=== PATIENT | male | born 1980 | race Caucasian/White ===

== ENCOUNTER 2023-01-14 21:10 | Emergency (ER) | payer BC, SELFPAY ==
[2023-01-14 21:10] VITALS: BP 179/94; PULSE 98; RESP 18; TEMP 36.4; O2SAT 99; BMI 45.1
--- NOTE | 2023-01-14 21:15 | EX.ED.DYSGE1 ---
HPI History of Present Illness Chief Complaint: Lower Extremity Injury PFSH PFS Home Medications levocetirizine 5 mg tablet (Xyzal) 5 mg PO DAILY allergies 01/14/23 [History Last Taken Unknown] Allergy/AdvReac Type Severity Reaction Status Date / Time amoxicillin Allergy Rash Verified 01/14/23 21:12 Surgical History (Updated 01/14/23 @ 21:27 by Stacy Lang) History of ankle surgery Social History Smoking Status: Never smoker EXAM Physical Exam Const Vital Signs: 01/14/23 21:10 Temperature 97.6 F L Temperature Source Temporal Pulse Rate 98 Respiratory Rate 18 Blood Pressure 179/94 H Blood Pressure Mean 122 Pulse Ox 99 Oxygen Delivery Method Room Air MDM MDM MDM Narrative Medical decision making narrative: HISTORY OF PRESENT ILLNESS: 42-year-old male here for left knee injury. He states he hurt his knee pop when try to get into his truck. This occurred approximately 5 PM, 4 hours prior to arrival. He states he was simply to get up in his pickup truck he heard a pop in his left knee. Since then he has had pain with ambulation. States pain is relatively well controlled at rest however when he tries to move he has severe pain in the left knee. The pain is nonradiating. He denies any numbness tingling or loss of sensation involved extremity. Patient denies active cancer, being bedridden for greater than 3 days, denies unilateral leg swelling, denies any varicose veins, denies any calf tenderness, denies any edema. Denies major surgery within 12 weeks, recent paralysis, previous DVT. REVIEW OF SYSTEMS: Pertinent positives: Knee pain Pertinent negatives: Numbness, tingling, loss of sensation PHYSICAL EXAM: Nursing triage notes reviewed, Vital signs reviewed Constitutional: please see mdm HENT: MMM Eyes: Pupils equal round and reactive to light, Extraocular muscles intact Neck: No stridor, no JVD, full neck ROM Lungs: Clear to auscultation, No wheezing or rales. No increased work of breathing, no conversational dyspnea, no accessory muscle use, no nasal flaring. No respiratory distress noted Heart: Regular rate and rhythm, No murmurs, No rubs and No gallops, 2+ distal pulses (radial, femoral, posterior tibial) in all extremities Abdomen: Soft, there is no tenderness, rigidity, rebound or guarding, no obvious peritoneal signs, no palpable pulsatile abdominal masses, no auscultated abdominal bruit : No CVAT Extremities: No edema, quadricep tendon complex intact, no calf tenderness, compartments are soft Neuro: Intact sensation L1-S1 dermatomal distributions. Intact 5/5 strength in hip flexion (T12-L3). Knee extension (L2-L4). Ankle dorsiflexion (L4-L5). Ankle plantar flexion (S1). Great toe extension (L5). 2+ patellar and Achilles DTRs. Skin: No rash or lesions noted, left lower extremity appears warm and well perfused MEDICAL DECISION MAKING: Chief Complaint: Knee pain External records reviewed: No recent advanced imaging of the involved extremity MDM Narrative: I considered the following differential diagnosis: Quadriceps tendon rupture, ligamentous injury, knee sprain, knee fracture dislocation, patella dislocation I obtained x-ray of the involved knee to rule out fracture dislocation. X-ray showed no acute fracture dislocation. I suspect the patient suffering from a knee sprain. He likely requires outpatient MRI for definitive diagnosis. He does not require emergent MRI. His right lower extremity is neurovascularly intact. There is no signs of quadriceps tendon rupture. He was provided a knee immobilizer, crutches and close outpatient orthopedic follow-up. Factors affecting care: None Social determinants of health: None History obtained from others: The patient's Shared decision making: I will have a discussion with the patient and or visitors regarding risk/benefits of further testing or admission. They will be made aware of of the risk/benefits inherent in this decision they will be given the opportunity to voice understanding. Consults: None Radiography Diagnostic Testing: Clinical Impression(s) from Imaging Studies Knee X-Ray 01/14/23 21:27 IMPRESSION: Small suprapatellar effusion. Electronically Signed: Saman Marrero MD at 21:39 EDT Reading Location ID and State: [facility] / [place] , Service support , Discharge Plan Triage Chief Complaint: Lower Extremity Injury ED Provider: Per Block Dx/Rx/DC Orders Clinical Impression: Knee sprain Instructions: ED Knee Sprain Prescriptions: No Action levocetirizine [Xyzal] 5 mg Tablet 5 mg PO DAILY Stand Alone Forms: ED Work / School Excuse Primary Care Provider: Casie Jones Referrals: Soto Gillespie MD [Med Staff - Active Staff] - Casie Jones MD [Primary Care Provider] - Activity Restrictions/Additional Instructions: Thank you for trusting us with your care today! Please take Tylenol (2 pills, 650 mg), ibuprofen (2 pills, 400 mg) every 6 hours as needed for pain and fever control. Please continue to use knee immobilizer as much as possible. Please return to the emergency department if your symptoms change or worsen. Please follow with your Orthopedic Surgery for further outpatient evaluation and management. Disposition Disposition: Home, Self Care
[2023-01-14] MEDS: oxyCODONE 5 MG Tablet PO (21:24)
[2023-01-14] MEDS: Ibuprofen 200 MG Tablet PO (21:25)
--- NOTE | 2023-01-14 21:27 | RAD_ITS ---
EXAM: XR LEFT KNEE, 3 VIEWS CLINICAL INDICATION: knee pain TECHNIQUE: Three views of the left knee. COMPARISON: No relevant prior studies available. FINDINGS: BONES/JOINTS: Small suprapatellar effusion. No acute fracture. No subluxation. Normal alignment. Preservation of the joint space. No sclerotic or destructive changes observed. SOFT TISSUES: Unremarkable. No soft tissue swelling or gas. No radiopaque foreign body. RAD/Knee 3 Views IMPRESSION: Small suprapatellar effusion. Electronically Signed: Saman Marrero MD at 21:39 EDT ,
== END 2023-01-14 21:58 | disposition home or self-care (01) ==
LOC: ED 21:50
PROVIDERS: Emergency Provider Emergency Medicine; PCP Internal Medicine; Visit Provider Emergency Medicine
DX: S83.92XA Sprain of unspecified site of left knee, initial encounter (principal); Y92.812 Truck as the place of occurrence of the external cause; X58.XXXA Exposure to other specified factors, initial encounter; Y93.89 Activity, other specified
CPT/HCPCS: 73562; 99284

== ENCOUNTER → 2023-02-22 | Outpatient (CLI) | payer BC, SELFPAY ==
--- NOTE | 2023-02-22 10:03 | ECHOD_ITS ---
Reason For Study: Family Hx congenital malformation (BiCuspid AV), sleep apena Procedure This was a 2D Doppler, Color Flow transthoracic echocardiogram. Exam performed in department. Left Ventricle Mild concentric left ventricular hypertrophy. Normal LV size. The left ventricular ejection fraction is 65 %. Normal diastololic function. Right Ventricle Normal right ventricle. Atria The left and right atria are normal. Mitral Valve The mitral valve is structurally normal. No prolapse or stenosis seen. Tricuspid Valve Trivial tricuspid valve insufficiency. Unable to estimate RV systolic pressure due to insufficient tricuspid regurgitant envelope. Aortic Valve Normal aortic valve. Trisinus/trileaflet aortic valve. Pulmonic Valve The pulmonic valve is not well visualized. Great Vessels Normal sized aortic root. Pericardium/Pleural No pericardial effusion. MMode/2D Measurements & Calculations LVIDd: 5.4 cm IVSd: 1.3 cm Ao root diam: 2.8 cm LVIDs: 3.1 cm LVPWd: 1.3 cm RVDd: 3.3 cm FS: 43.4 % LAV(MOD-bp): 73.3 ml LA A4 area: 23.8 cm2 LA dimension(2D): 4.0 cm LAV(MOD-bp) Indexed: 30.8 ml/m2 LAV(MOD-sp2): 67.3 ml LAV(MOD-sp4): 73.4 ml RA A4 area: 19.6 cm2 Time Measurements MV dec time: 0.24 sec Doppler Measurements & Calculations MV E max lobo: 81.1 cm/sec Lat Peak E' Lobo: 9.5 cm/sec Med Peak E' Lobo: 7.7 cm/sec MV A max lobo: 64.2 cm/sec E/E' lat: 8.5 E/E' med: 10.5 MV E/A: 1.3 MV dec slope: 333.7 cm/sec2 Ao V2 max: 122.7 cm/sec LV V1 max: 114.0 cm/sec Ao max P.0 mmHg LV V1 max P.2 mmHg Ao V2 mean: 83.4 cm/sec LV V1 mean P.9 mmHg Ao mean P.2 mmHg LV V1 mean: 79.4 cm/sec Ao V2 VTI: 27.3 cm LV V1 VTI: 24.0 cm AV (velocity ratio): 0.88 PA V2 max: 141.7 cm/sec ECHO/Echo Complete Interpretation Summary Mild concentric left ventricular hypertrophy. The left ventricular ejection fraction is 65 %. Ordering Physician: Casie Jones Referring Physician: Casie Jones Performed By: Kathya De Leon RDCS, RVT
[2023-02-22 10:28] LABS: Absolute Lymphocyte Count 2.83 X10^3/uL (0.83-4.51); Absolute Neutrophil Count 7.5 X10^3/uL (2.0-7.7); Basophil# 0.05 X10^3/uL; Basophil% 0.4 % (0-1); Eosinophil# 0.28 X10^3/uL; Eosinophils% 2.5 % (0-5); Hemoglobin 14.8 g/dL (13.0-16.5); Lymphocyte # 2.83 X10^3/ul (0.83-4.51); Lymphocyte % 24.9 % (19-41); Mean Corp Hgb Conc 33.6 g/dL (32-36); Mean Corpuscular Hgb 28.3 pg (27.0-32.0); Mean Corpuscular Volume 84.1 fL (80-94); Mean Platelet Vol. 10.5 fl (6.2-12.0); Monocyte# 0.63 X10^3/uL; Monocyte% 5.5 % (0-10); NRBC Flagged by Analyzer 0 % (0-5); Neutrophil # 7.54 X10^3/uL (2.7-7.7); Neutrophil % 66.4 % (47-70); Platelet Count 307 K/mm3 (150-450); RBC Distribution Width CV 13.2 % (11.6-14.6); RBC Distribution Width SD 40.1 fl (35.1-43.9); Red Blood Count 5.23 M/mm3 (4.6-6.2); White Blood Count 11.4 K/mm3 (4.4-11.0)
[2023-02-22 11:00] LABS: Hemoglobin A1c 5.3 % (3.8-5.6)
[2023-02-22 11:06] LABS: Insulin 42.8 mU/L (2.6-37.6); Vitamin D,25 Hydroxy 28.6 ng/mL
[2023-02-22 11:21] LABS: ALB/GLOB Ratio 0.9 RATIO (0.9-2.4); AST(SGOT) 21 U/L (15-37); Alanine Aminotransfer ALT/SGPT 41 U/L (16-61); Albumin, Serum 3.9 g/dL (3.2-5.0); Alkaline Phosphatase 61 U/L (45-117); Anion Gap 5 (5-15); BUN 17 mg/dL (7-18); BUN/Creat Ratio 18.8 RATIO (10-20); Calcium,Total 9.1 mg/dL (8.5-10.1); Chloride 107 mmol/L (98-107); Cholesterol 121 mg/dL (200); EST Glomerular Filtration Rate 98 mL/min (>60); Est Glom Filt Rate - Afr Amer 118 mL/min (>60); Globulin 4.2 g/dL (2.2-4.2); Glucose 104 mg/dL (74-106); High Density Lipoprotein 43 mg/dL; PSA,Total - Annual Screen 0.64 ng/mL (0.00-4.00); Potassium 4.2 mmol/L (3.5-5.1); Protein, Total 8.1 g/dL (6.4-8.2); Sodium Level 141 mmol/L (136-145); Thyroid Stim Hormone (TSH) 0.54 uIU/mL (0.358-3.74); Triglycerides 132 mg/dL; Very Low Density Lipoprotein 26 mg/dL (5-40)
== END | disposition home or self-care (01) ==
PROVIDERS: PCP Internal Medicine; Referring Provider Internal Medicine; Visit Provider Internal Medicine
DX: Z00.00 Encounter for general adult medical examination without abnormal findings (principal); E66.9 Obesity, unspecified; R73.9 Hyperglycemia, unspecified; Z12.5 Encounter for screening for malignant neoplasm of prostate; E55.9 Vitamin D deficiency, unspecified; Z82.79 Family history of other congenital malformations, deformations and chromosomal abnormalities
CPT/HCPCS: 36415; 80053; 80061; 82306; 83036; 83525; 84153; 84443; 85025; 93306; G0103

== ENCOUNTER → 2023-03-22 | Outpatient (CLI) | payer BC, SELFPAY | END | disposition home or self-care (01) | LOC: SL 11:29 | PROVIDERS: PCP Internal Medicine; Referring Provider Internal Medicine; Visit Provider Internal Medicine | DX: G47.30 Sleep apnea, unspecified (principal); E66.9 Obesity, unspecified; R06.83 Snoring | CPT/HCPCS: 95806 ==

== ENCOUNTER → 2025-05-25 | Outpatient (CLI) | payer BC, SELFPAY ==
--- NOTE | 2025-05-25 07:03 | MRI_ITS ---
PROCEDURE: LOWER EXT JOINT ONLY (ROUTINE) 05/25/2025 REASON FOR EXAM: SPRAIN OF UNSPECIFIED SITE TO RIGHT KNEE, INITIAL. Lateral right knee pain. TECHNIQUE: Procedure Code: MRILEJ Modality: MR Procedure: MRI of the right knee without contrast. Multiplanar and multisequence images were obtained without IV contrast administration. COMPARISON: COMPARISON : None provided. FINDINGS: A [id number] right knee joint effusion is seen. No significant Woodward's or popliteal cyst is noted. No acute osseous signal change is seen. Thickening and inhomogeneous signal of the proximal portion of the lateral collateral ligament is seen, likely due to partial tearing. The medial collateral and cruciate ligaments appear intact. Visualized extensor tendons appear intact. Mild degenerative changes are seen of the medial compartment, with associated mild irregular articular cartilage thinning. The patellofemoral compartment also demonstrates mild degenerative changes, with mild irregular articular cartilage thinning, as well. An intrasubstance tear of the medial meniscus is seen, most prominent in the posterior horn. Questionable surface extension posteriorly to the tibial surface. No lateral meniscal tear is identified. MRI/Lower Ext Joint Only (Routine) IMPRESSION: 1. Degenerative changes as described. 2. Thickening and inhomogeneous signal of the proximal portion of the lateral c ollateral ligament is seen, likely due to partial tearing. 3. Medial meniscal tear. 4. [id number] sized right knee joint effusion. Reading Location: [id number]
--- OUTSIDE RECORDS SUMMARY | 2025-05-25 07:06 | XMS RPT_ITS | CCD ---
Author Organization [facility] Inform ion Partnership [facility] Care Team Providers Care Land Appraiser Name Role Phone Dr. Casie Jones Primary Care Provider Dr. Casie Jones Attending Provider [phone] Dr. Fredrick Barcenas Attending Provider Nena Patel Referring Unavailable Nena Patel Attending Unavailable Casie Jones Primary Care Unavailable Allergies Allergy Classification Reported Allergen(s) Allergy Type Date of Onset Reaction(s) Facility (2 sources) Amoxicillin Drug Allergy 01-14-2023 Rash [facility] (1 source) Amoxicillin Drug Allergy 01-22-2023 [facility] Repository Medications Current Medications Medication Drug Class(es) Dates Sig (Normalized) Sig (Original) fluticasone propionate 0.05 mg/actuat metered dose nasal spray (1 source) Corticosteroid Start: 01-19-2023 take 1 spray(s) nasal route once daily Fluticasone Propionate (Flonase Allergy Relief) 50 mcg/actuation spray,suspension Active 1 SPRAY INTRANASAL DAILY January 19, 2023 12:00am administer into each nostril levocetirizine dihydrochloride 5 mg oral tablet (2 sources) Histamine-1 Receptor Antagonist Start: 01-14-2023 take 1 tablet by mouth once daily Levocetirizine (Xyzal) 5 mg Tablet Active 5 MG PO DAILY January 14, 2023 12:00am Problems Problem Classification Problem Date Documented Date Episodic/Chronic Administrative/social admission (1 source) Persons encountering health services in other specified circumstances; Translations: [Other reasons for seeking consultation] 01-22-2023 Episodic Other lower respiratory disease (1 source) Snoring; Translations: [Snoring] 01-22-2023 Episodic Other lower respiratory disease (1 source) Snoring; Translations: [Other respiratory abnormalities] 01-22-2023 Episodic Other nutritional; endocrine; and metabolic disorders (1 source) Obesity; Translations: [Obesity, unspecified] 01-22-2023 Chronic Other nutritional; endocrine; and metabolic disorders (1 source) Obesity, unspecified; Translations: [Obesity, unspecified] 01-22-2023 Chronic Residual codes; unclassified (1 source) Sleep apnea; Translations: [Sleep apnea, unspecified] 01-22-2023 Chronic Residual codes; unclassified (1 source) Sleep apnea, unspecified; Translations: [Unspecified sleep apnea] 01-22-2023 Chronic Residual codes; unclassified (1 source) FH: Congenital heart disease; Translations: [Family history of other congenital malformations, deformations and chromosomal abnormalities] 01-22-2023 Episodic Residual codes; unclassified (1 source) Family history of cardiac disorder; Translations: [Family history of other congenital malformations, deformations and chromosomal abnormalities] 01-22-2023 Episodic Residual codes; unclassified (1 source) Family history of other congenital malformations, deformations and chromosomal abnormalities; Translations: [Family history of other cardiovascular diseases] 01-22-2023 Episodic Sprains and strains (3 sources) Sprain of knee; Translations: [Sprain of unspecified site of unspecified knee, initial encounter] Onset: 05-22-2025 01-14-2023 Episodic Results Test Name Value Interpretation Reference Range Facility Absolute lymphocyte countOrd ered By: Dr. Jones on 02-22-2023 Lymphocytes Auto (Unsp spec) [#/Vol] 2.83 10*3/uL 0.83-4.51 [facility] Basophil percentageOrdered B y: Dr. Jones on 02-22-2023 Basophils/100 WBC (Bld) 0.4 % 0-1 [facility] Bilirubin [Mass/Vol] 0.30 mg/dL 0.20-1.00 [facility] Comment on above: For patients on eltr ombopag therapy, use of Dimension [place] TBIL is not recommended. Chloride [Moles/Vol] 107 mmol/L 98-107 [facility] Cholesterol [Mass/Vol] 121 mg/dL <200 [facility] Comment on above: <200 mg/dL Desirable 200-240 mg/dL Borderline >240 mg/dL High Risk Eosinophils/100 WBC (Bld) 2.5 % 0-5 [facility] Glucose [Mass/Vol] 104 mg/dL 74-106 [facility] Comment on above: Fasting Glucose resu lt from 100 to 125 mg/dL suggests IMPAIRED HOMEOSTASIS per A.D.A. criteria. Neutrophils (Bld) [#/Vol] 7.5 10*3/uL 2.0-7.7 [facility] Neutrophils/100 WBC (Bld) 66.4 % 47-70 [facility] Potassium [Moles/Vol] 4.2 mmol/L 3.5-5.1 [facility] Protein [Mass/Vol] 8.1 g/dL 6.4-8.2 [facility] Sodium [Moles/Vol] 141 mmol/L 136-145 [facility] Triglyceride [Mass/Vol] 132 mg/dL <199 [facility] Comment on above: The drugs N-Acetylcy steine and Metamizole may falsely depress this assay.Serum Triglycerides Reference Interval Normal <150 mg/dL Borderline high 150 - 199 mg/dL High 200 - 499 mg/dL Very High > or = 500 mg/dL WBC (Bld) [#/Vol] 11.4 10*3/uL 4.4-11.0 [facility] Blood erythrocytes count (nu mber/volume)Ordered By: Dr. Jones on 02-22-2023 RBC (Bld) [#/Vol] 5.23 10*6/uL 4.6-6.2 [facility] Blood hemoglobin measurement (mass/volume)Ordered By: Dr. Jones on 02-22-2023 Hemoglobin (Bld) [Mass/Vol] 14.8 g/dL 13.0-16.5 [facility] Blood lymphocytes/100 leukoc ytesOrdered By: Dr. Jones on 02-22-2023 Lymphocytes/100 WBC (Bld) 24.9 % 19-41 [facility] Blood monocytes/100 leukocyt esOrdered By: Dr. Jones on 02-22-2023 Monocytes/100 WBC (Bld) 5.5 % 0-10 [facility] Blood platelet mean volumeOr dered By: Dr. Jones on 02-22-2023 Platelet mean volume (Bld) [Entitic vol] 10.5 fL 6.2-12.0 [facility] Determination of erythrocyte mean corpuscular volume (MCV)Ordered By: Dr. Jones on 02-22-2023 MCV (RBC) [Entitic vol] 84.1 fL 80-94 [facility] Hematocrit Auto (Bld) [Volum e fraction]Ordered By: Dr. Jones on 02-22-2023 Hematocrit (Bld) [Volume fraction] 44.0 % 40-54 [facility] Laboratory - Chemistry and C hemistry - challengeOrdered By: Dr. Jones on 02-22-2023 ALP [Catalytic activity/Vol] 61 U/L 45-117 [facility] ALT [Catalytic activity/Vol] 41 U/L 16-61 [facility] CO2 [Moles/Vol] 29.0 mmol/L 21.0-32.0 [facility] Globulin (S) [Mass/Vol] 4.2 g/dL 2.2-4.2 [facility] Urea nitrogen/Creatinine [Mass ratio] 18.8 mg/mg 10-20 [facility] Laboratory - Hematology and Cell countsOrdered By: Dr. Jones on 02-22-2023 Erythrocyte distribution width (RBC) [Entitic vol] 40.1 fL 35.1-43.9 [facility] Erythrocyte distribution width (RBC) [Ratio] 13.2 % 11.6-14.6 [facility] Immature granulocytes/100 WBC (Bld) 0.300 % 0.0-0.9 [facility] Comment on above: IG% - Immature Granu locytes (promyelocytes, myelocytes and metamyelocytes) > 1% indicates that a LEFT SHIFT is Present. MCH (RBC) [Entitic mass] 28.3 pg 27.0-32.0 [facility] Nucleated RBC/100 WBC (Bld) [Ratio] 0 % 0-5 [facility] MCHC Auto (RBC) [Mass/Vol]Or dered By: Dr. Jones on 02-22-2023 MCHC (RBC) [Mass/Vol] 33.6 g/dL 32-36 [facility] No Panel InformationOrdered By: Dr. Jones on 02-22-2023 Estimated GFR (MDRD) Amer 118 mL/min >60 [facility] Comment on above: GFR Calc Estimated GFR (MDRD) Non-Af Amer 98 mL/min >60 [facility] Comment on above: Non- GFR Calc Insulin Level 42.8 mU/L 2.6-37.6 [facility] Prostate Specific Antigen Screen 0.64 ng/mL 0.00-4.00 [facility] Comment on above: This test was perfor med using the TPSA assay method for [employer] chemistry system. Values obtained with differentassay methods cannot be used interchangably.When changing PSA assays in the course of monitoring apatient, additional sequential testing should be carriedout to confirm baseline values. Thyroid Stimulating Hormone (TSH) 0.54 uIU/mL 0.358-3.74 [facility] Vitamin D 25-Hydroxy 28.6 ng/mL [facility] Comment on above: Vitamin D 25(OH) Sta tus Range Deficiency <20 ng/mL (50nmol/L) Insufficiency 20 - 30 ng/mL (50 - 75 nmol/L) Sufficiency 30 - 100 ng/mL (75 - 250 nmol/L) Toxicity >100 ng/mL (>250 nmol/L) Platelets bldOrdered By: Dr. Jones on 02-22-2023 Platelets (Bld) [#/Vol] 307 10*3/uL 150-450 [facility] Serum or plasma albumin warren urement (mass/volume)Ordered By: Dr. Jones on 02-22-2023 Albumin [Mass/Vol] 3.9 g/dL 3.2-5.0 [facility] Serum or plasma albumin/glob ulin mass ratioOrdered By: Dr. Jones on 02-22-2023 Albumin/Globulin [Mass ratio] 0.9 {ratio} 0.9-2.4 [facility] Serum or plasma calcium warren urement (mass/volume)Ordered By: Dr. Jones on 02-22-2023 Calcium [Mass/Vol] 9.1 mg/dL 8.5-10.1 [facility] Serum or plasma cholesterol in HDL measurement (mass/volume)Ordered By: Dr. Jones on 02-22-2023 Cholesterol in HDL [Mass/Vol] 43 mg/dL >40 [facility] Comment on above: The drugs N-Acetylcy steine and Metamizole may falsely depress this assay. Reference Range HDL <40 mg/dL Low HDL Cholesterol HDL >or= 60 mg/dL High HDL Cholesterol Serum or plasma cholesterol in VLDL measurement (mass/volume)Ordered By: Dr. Jones on 02-22-2023 Cholesterol in VLDL [Mass/Vol] 26 mg/dL 5-40 [facility] Serum or plasma creatinine m easurement (mass/volume)Ordered By: Dr. Jones on 02-22-2023 Creatinine [Mass/Vol] 0.90 mg/dL 0.70-1.30 [facility] Comment on above: The validity of the calculated GFR & GFRAA in patients over 70 years has not been determined. Clinical correlation is essential. Serum or plasma low density lipoprotein (LDL) cholesterol measurement (mass/volume)Ordered By: Dr. Jones on 02-22-2023 Cholesterol in LDL [Mass/Vol] 52 mg/dL 0-130 [facility] Serum or plasma urea nitroge n measurement (mass/volume)Ordered By: Dr. Jones on 02-22-2023 Urea nitrogen [Mass/Vol] 17 mg/dL 7-18 [facility] Thin prep Papanicolaou smear with manual screeningOrdered By: Dr. Jones on 02-22-2023 Thin prep Papanicolaou smear with manual screening 21 U/L 15-37 [facility] Thin prep Papanicolaou smear with manual screening 5 5-15 [facility] Whole blood hemoglobin A1c/t otal hemoglobin ratio (mass fraction)Ordered By: Dr. Jones on 02-22-2023 HbA1c (Bld) [Mass fraction] 5.3 % 3.8-5.6 [facility] Comment on above: Normal < 5.7 % Predi abetic 5.7 - 6.4 % Diabetic >or= 6.5 % Please note range changes. Vital Signs Date Time Vital Sign Value Performing Clinician Faci lity 01-22-2023 10:55-0400 Body height 172.[address] Casie Jones Work Phone: [facility] 01-22-2023 10:55-0400 Body mass index (BMI) [Ratio] 44.6 kg/m2 Dr. Casie Jones Work Phone: [facility] 01-22-2023 10:55-0400 Body temperature 98.3 [degF] Dr. Casie Jones Work Phone: [facility] 01-22-2023 10:55-0400 Body weight 133.[address] Casie Jones Work Phone: [facility] 01-22-2023 10:55-0400 Diastolic blood pressure 98 mm[Hg] Dr. Casie Jones Work Phone: [facility] 01-22-2023 10:55-0400 Heart rate 74 /min Dr. Casie Jones Work Phone: [facility] 01-22-2023 10:55-0400 Respiratory rate 18 /min Dr. Casie Jones Work Phone: [facility] 01-22-2023 10:55-0400 SaO2% (BldA) [Mass fraction] 96 % Dr. Casie Jones Work Phone: [facility] 01-22-2023 10:55-0400 Systolic blood pressure 162 mm[Hg] Dr. Casie Jones Work Phone: [facility] 01-14-2023 21:10-0400 Body height 172.72 cm [facility] 01-14-2023 21:10-0400 Body mass index (BMI) [Ratio] 45.1 kg/m2 [facility] 01-14-2023 21:10-0400 Body temperature 97.6 [degF] [facility] 01-14-2023 21:10-0400 Body weight 134.71 kg [facility] 01-14-2023 21:10-0400 Diastolic blood pressure 94 mm[Hg] [facility] 01-14-2023 21:10-0400 Heart rate 98 /min [facility] 01-14-2023 21:10-0400 Respiratory rate 18 /min [facility] 01-14-2023 21:10-0400 SaO2% (BldA) [Mass fraction] 99 % [facility] 01-14-2023 21:10-0400 Systolic blood pressure 179 mm[Hg] [facility] Encounters Encounter Date Encounter Type Care Provider Facility Start: 05-25-2025 ambulatory [facility] Facility :[facility] Start: 02-22-2023 Non-patient / Non-visit Dr. Joan Jones Work Phone: [facility] Start: 02-22-2023 End: 02-22-[address] Casie Jones Work Phone: [facility] Work Phone: Start: 02-22-2023 End: 02-22-[address] Casie Jones Work Phone: [facility] Start: 01-22-[address] Oralia Jones Work Phone: [facility] Start: 01-22-2023 End: 01-22-2023 Encounter for general adult medical examination without abnormal findings Dr. Casie Jones Work Phone: [facility] Start: 01-22-2023 End: 01-22-[address] Casie Jones Work Phone: [facility] Start: 01-14-2023 End: 01-14-2023 Emergency department patient visit [facility] Procedures Date Procedure Procedure Detail Performing Clinician Start: 01-14-2023 Radiologic examinati on of knee Plan of Treatment Date Care Activity Detail Author Patient Education ED Knee Sprain [facility] Work Phone: Patient referral [facility] Work Phone: [facility] Payers Date Payer Category Payer Self-pay 2025 Unknown [id number] Unknown [id number] Social History Date Type Detail Facility Start: 01-14-2023 End: 01-22-2023 Tobacco smoking status NHIS Unknown if ever smoked [facility] Start: 1980 Sex Assigned At Male [facility] Discharge summary 01-14-2023 Note Date & Type Note Facility 01-14-2023 Discharge summary Note Date/Time January 14, 2023 9:18pm [facility] Medical Records Department [address] [place] [address] Emergency Department Summary 01/14/23 MR#: [id number] Acct: [id number] Name: NOBLE COBB Rep #:[id number] : 1980 42 From: Per Berger PCP: Casie Jones MD Status:PRE ER Location: ED HPI History of Present Illness Chief Complaint: Lower Extremity Injury PFSH PFSH Home Medications levocetirizine 5 mg tablet (Xyzal) 5 mg PO DAILY allergies 01/14/23 [History Last Taken Unknown] Allergy/AdvReac Type Severity Reaction Status Date / Time amoxicillin Allergy Rash Verified 01/14/23 21:12 Surgical History (Updated 01/14/23 @ 21:27 by Stacy Lang) History of ankle surgery Social History Smoking Status: Never smoker EXAM Physical Exam Const Vital Signs: 01/14/23 21:10 Temperature 97.6 F L Temperature Source Temporal Pulse Rate 98 Respiratory Rate 18 Blood Pressure 179/94 H Blood Pressure Mean 122 Pulse Ox 99 Oxygen Delivery Method Room Air MDM MDM MDM Narrative Medical decision making narrative: HISTORY OF PRESENT ILLNESS: 42-year-old male here for left knee injury. He states he hurt his knee pop whentry to get into his truck. This occurred approximately 5 PM, 4 hours prior to arrival. He states he was simply to get up in his pickup truck he heard a pop in his left knee. Since then he has had pain with ambulation. States pain is relatively well controlled at rest however when he tries to move he has severe pain in the left knee. The pain is nonradiating. He denies any numbness tingling or loss of sensation involved extremity. Patient denies active cancer, being bedridden for greater than 3 days, denies unilateral leg swelling, denies any varicose veins, denies any calf tenderness, denies any edema. Denies major surgery within 12 weeks, recent paralysis, previous DVT. REVIEW OF SYSTEMS: Pertinent positives: Knee pain Pertinent negatives: Numbness, tingling, loss of sensation PHYSICAL EXAM: Nursing triage notes reviewed, Vital signs reviewed Constitutional: please see mdm HENT: MMM Eyes: Pupils equal round and reactive to light, Extraocular muscles intact Neck: No stridor, no JVD, full neck ROM Lungs: Clear to auscultation, No wheezing or rales. No increased work of breathing, no conversational dyspnea, no accessory muscle use, no nasal flaring. No respiratory distress noted Heart: Regular rate and rhythm, No murmurs, No rubs and No gallops, 2+ distal pulses (radial, femoral, posterior tibial) in all extremities Abdomen: Soft, there is no tenderness, rigidity, rebound or guarding, no obviousperitoneal signs, no palpable pulsatile abdominal masses, no auscultated abdominal bruit : No CVAT Extremities: No edema, quadricep tendon complex intact, no calf tenderness, compartments are soft Neuro: Intact sensation L1-S1 dermatomal distributions. Intact 5/5 strength in hip flexion (T12-L3). Knee extension (L2-L4). Ankle dorsiflexion (L4-L5). Ankle plantar flexion (S1). Great toe extension (L5). 2+ patellar and AchillesDTRs. Skin: No rash or lesions noted, left lower extremity appears warm and well perfused MEDICAL DECISION MAKING: Chief Complaint: Knee pain External records reviewed: No recent advanced imaging of the involved extremity [facility] Narrative: I considered the following differential diagnosis: Quadriceps tendon rupture, ligamentous injury, knee sprain, knee fracture dislocation, patella dislocation I obtained x-ray of the involved knee to rule out fracture dislocation. X-ray showed no acute fracture dislocation. I suspect the patient suffering from a knee sprain. He likely requires outpatient MRI for definitive diagnosis. He does not require emergent MRI. His right lower extremity is neurovascularly intact. There is no signs of quadriceps tendon rupture. He was provided a kneeimmobilizer, crutches and close outpatient orthopedic follow-up. Factors affecting care: None Social determinants of health: None History obtained from others: The patient's Shared decision making: I will have a discussion with the patient and or visitors regarding risk/benefits of further testing or admission. They will be made aware of of the risk/benefits inherent in this decision they will be given the opportunity to voice understanding. Consults: None Radiography Diagnostic Testing: Clinical Impression(s) from Imaging Studies Knee X-Ray 01/14/23 21:27 IMPRESSION: Small suprapatellar effusion. Electronically Signed: Saman Marrero MD at 21:39 EDT Reading Location ID and State: [facility] / [place] , Service support , Discharge Plan Triage Chief Complaint: Lower Extremity Injury ED Provider: Per Block Dx/Rx/DC Orders Clinical Impression: Knee sprain Instructions: ED Knee Sprain Prescriptions: No Action levocetirizine [Xyzal] 5 mg Tablet 5 mg PO DAILY Stand Alone Forms: ED Work / School Excuse Primary Care Provider: Casie Jones Referrals: Soto Gillespie MD [Med Staff - Active Staff] - Casie Jones MD [Primary Care Provider] - Activity Restrictions/Additional Instructions: Thank you for trusting us with your care today! Please take Tylenol (2 pills, 650 mg), ibuprofen (2 pills, 400 mg) every 6 hoursas needed for pain and fever control. Please continue to use knee immobilizer as much as possible. Please return to the emergency department if your symptoms change or worsen. Please follow with your Orthopedic Surgery for further outpatient evaluation andmanagement. Disposition Disposition: Home, Self Care What to do if you have Problems For any increased pain, shortness of breath, bleeding, nausea or vomiting, chestpain, or any unexpected problems, contact your Primary Care Provider. Call [facility] ([phone]) or report to the closest Emergency Room. Call 911 if necessary. 01/14/232141 <Electronically signed by Per Block DO> Cosigner Signature (if applicable): CC: Casie Jones MD ~ Signed [facility] Work Phone: Evaluation note Note Date & Type Note Facility Evaluation note No assessment information availa ble [facility] Work Phone: Evaluation note Note Date & Type Note Facility Evaluation note Diagnosis Onset Date Encounter for wellness examination in adult acute Family history of first degr ee relative with bicuspid aortic valve acute Loud snoring acute Obesity acute Sleep apnea acute Encounter to establish care noneactive [facility] Work Phone: Hospital Discharge instructions Note Date & Type Note Facility Hospital Discharge instructions Additional Instructions Thank you for trusting us with your care today! Please take Tylenol (2 pills, 650 mg), ibuprofen (2 pills, 400 mg) every 6 hours as needed for pain and fever control. Please continue to use knee immobilizer as much as possible. Please return to the emergency department if your symptoms change or worsen. Please follow with your Orthopedic Surgery for further outpatient evaluation and management. [facility] Work Phone: Chief Complaint and Reason for Visit Chief Complaint LEFT KNEE INJURY Chief Complaint LEFT KNEE INJURY ESTABLISH CARE SLEEP APNEA Reason for Visit Encounter for tjne ss examination in adult Family history of first degree relative with bicuspid aortic valve Loud snoring Obesity Sleep apnea Encounter to establish care Advance Directives No Advanced Directives Records Found Advance Directive Response Recorded Date/ Time Living Will No January 14, 2023 9 :27pm Power of Financial Services Technician No January 14, 2023 9:27pm Family History No Family History Records Found Relationship Condition Age at Onset Recorded Date/T elmira Not Specified Acute arthritis Unknown Malignant neoplasm of colon Unknown Diabetes mellitus Unknown High blood cholesterol Unknown Autoimmune disorder Unknown Depression Unknown Cardiac disease Unknown Hypertension Unknown father Aortic valve disorder 62 Summary Purpose Additional Source Comments Care Teams (unrecognized sec tion and content) Team Status: Active Member Role Status Dates Dr. Yasir Metzger MD Family Provider Active Dr. Casie Jones MD Primary Care Provider Active Team Status: Inactive Member Role Status Dates Dr. Per lBock DO Emergency Provider Active Dr. Casie Jones MD Primary Care Provider Active Team Status: Inactive Member Role Status Dates Dr. Casie Jones MD Primary Care Provider, [facility] Provider Active Team Status: Active Member Role Status Dates Dr. Casie Jones MD Primary Care Provider Active Dr. Fredrick Barcenas MD Attending Provider Active Team Status: Inactive Member Role Status Dates Dr. Per Block DO Attending Provider, Emergency P guillermo Active Dr. Casie Jones MD Primary Care Provider Active Team Status: Inactive Member Role Status Dates Dr. Casie Jones MD Primary Care Pro vider, Attending Provider, Referring Provider Active Goals (unrecognized section and content) Goals may be documented in a n alternate sectionGoals may be documented in an alternate section (unrecognized sect ion and content) No Status Records Found INFORMATION SOURCE (unrecogn ized section and content) DATE CREATED AUTHOR 05/23/2025 [facility] FOR RECORDS PERTAINING TO PATIENTS WHO ARE OR HAVE BEEN ENROLLED IN A CHEMICAL DEPENDENCY/SUBSTANCEABUSE PROGRAM, SOME INFORMATION MAY BE OMITTED. This clinical summary was aggregated from multiple sources. Caution should be exercised in using it in the provision of clinical care. This summary normalizes information from multiple sources, and as a consequence, information in this document may materially change the coding, format and clinical context of patient data. In addition, data may be omitted in some cases. CLINICAL DECISIONS SHOULD BE BASED ON THE PRIMARY CLINICAL RECORDS. [employer] provides no warranty or guarantee of the accuracy or completeness of information in this document.
== END | disposition home or self-care (01) ==
LOC: OPMRI 07:01
PROVIDERS: PCP Internal Medicine
DX: S83.91XA Sprain of unspecified site of right knee, initial encounter (principal)
CPT/HCPCS: 73721